=== PATIENT | male | born 1990 | race Caucasian/White ===

== ENCOUNTER 2017-06-15 21:21 | Emergency (ER) | payer SELFPAY ==
[~2017-06-15] VITALS: Ht 182.9 cm; Wt 81.5 kg
[2017-06-15] MEDS ORDERED: HYDROmorphone 2 MG/ML, 1ML ONE ×2 (22:19→23:16)
[2017-06-15] MEDS ORDERED: ONDANSETRON ODT 4 MG ONE (22:19)
[2017-06-15] MEDS: ONDANSETRON ODT 4 MG PO ONE (22:24)
[2017-06-15] MEDS: HYDROmorphone 1 MG/ML, 1ML IM ONE (22:24)
[2017-06-15] MEDS: HYDROmorphone 2 MG/ML, 1ML IM ONE (23:17)
[2017-06-16 00:31] VITALS: BP 109/57
== END 2017-06-16 00:34 | disposition home or self-care (01) ==
LOC: ED 22:20
DX: S43.402A Unspecified sprain of left shoulder joint, initial encounter (principal); W19.XXXA Unspecified fall, initial encounter; Y93.23 Activity, snow (alpine) (downhill) skiing, snowboarding, sledding, tobogganing and snow tubing; Y92.830 Public park as the place of occurrence of the external cause; Y99.8 Other external cause status
CPT/HCPCS: 71020; 73000; 73030; 96372; 99284; J1170; Q0162

== ENCOUNTER 2020-03-30 12:05 | Emergency (ER) | payer OTHER ==
[~2020-03-30] VITALS: Ht 182.9 cm; Wt 79.8 kg
--- NOTE | 2020-03-30 12:07 | NUR ---
ERMD IN TO EVAL PT IN TRIAGE, TOURNIQUET APPLIED TO AFFECTED FINGER
--- NOTE | 2020-03-30 12:10 | NUR ---
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 STOKES AND TATIANA NGUYEN IN TRIAGE TO EVALUATE PT AND APPLY TOURNIQUETS TO RING AND MIDDLE FINGERS TO CONTROL BLEEDING. PT TRAIGED AND TAKEN STRAIGHT TO TRAUMA 4 WITH PRIMARY RN JUAN DIEGO, DR. STOKES, TATIANA NGUYEN AT BEDSIDE.
[2020-03-30] MEDS ORDERED: LIDOCAINE-MPF 1%, 5ML ONE ×2 (12:13→13:32)
[2020-03-30] MEDS ORDERED: BUPIVACAINE 0.25% ONE (12:14)
[2020-03-30] MEDS ORDERED: ONDANSETRON 2MG/ML, 2ML ONE (12:16)
[2020-03-30] MEDS ORDERED: MORPHINE SULFATE 4 MG/ML, 1ML ONE (12:16)
[2020-03-30] MEDS ORDERED: SODIUM CHLORIDE 0.9% 1,000 ML IV ONE (12:19)
--- NOTE | 2020-03-30 12:24 | NUR ---
PT TO [facility], PT REPROTS HE WAS CUTTING WOOD WHEN HE HIT HIS FINGERS ON THE TABLE SAW CAUSING LACERATION TO RING AND MIDDLE FINGERS ON LEFT HAND.
[2020-03-30] MEDS ORDERED: LIDOCAINE 2%, 20ML SQ ONE (12:30)
[2020-03-30] MEDS ORDERED: ONDANSETRON 2MG/ML, 2ML IVPush ONE (12:30)
[2020-03-30] MEDS ORDERED: DIPH,PERTUSS(ACELL),TET VAC/PF 0.5 ML IM-VACC ONE ×2 (12:30→12:36)
[2020-03-30] MEDS ORDERED: MORPHINE SULFATE 4 MG/ML, 1ML IVPush PRN (12:30)
[2020-03-30] MEDS ORDERED: BUPIVACAINE/PF 0.5% INFIL ONE (12:30)
--- NOTE | 2020-03-30 12:34 | NUR ---
report received from denia may. pt in room 17 at this time.
--- NOTE | 2020-03-30 12:36 | NUR ---
PT REPORT TO TAMIKO COPELAND
--- NOTE | 2020-03-30 12:45 | NUR ---
TDAP GIVEN. NS INFUSING AT THIS TIME. PT TOLERATED WELL.
[2020-03-30 14:46] VITALS: BP 100/69
--- NOTE | 2020-03-30 14:46 | NUR ---
PAMELA RN: PT REFUSED SUTURES. PER PATRICK SHAH DRESSING PLACED ON WOUND. PT REPORTS HE WANTS TO LEAVE. PT VERBALIZES DISCHARGE INSTRUCTIONS. PT DISCHARGED PER PATRICK SHAH.
[2020-03-31] MEDS ORDERED: LIDOCAINE-MPF 1%, 5ML INFIL ONE (09:00)
== END 2020-03-30 14:49 | disposition home or self-care (01) ==
LOC: ED 13:28
DX: S91.115A Laceration without foreign body of left lesser toe(s) without damage to nail, initial encounter (principal); Z87.891 Personal history of nicotine dependence; Z89.022 Acquired absence of left finger(s); W31.2XXA Contact with powered woodworking and forming machines, initial encounter; Y93.89 Activity, other specified; Y92.89 Other specified places as the place of occurrence of the external cause; Y99.0 Civilian activity done for income or pay
CPT/HCPCS: 64450; 73130; 90471; 90715; 96361; 96374; 96375; 99284; J2270; J2405; J7030